=== PATIENT | male | born 1955 | race African-American/Black ===

== ENCOUNTER 2017-09-04 20:23 | Inpatient (IN) | payer MEDICAID ==
[~2017-09-04] VITALS: Ht 177.8 cm; Wt 133.9 kg
[2017-09-04 23:13] LABS: CALCIUM 8.7 mg/dL (8.5-10.1); CARBON DIOXIDE 27.9 mmol/L (21-32); CHLORIDE SERUM 100 mmol/L (98-107); CREATININE SERUM 1.1 mg/dL (0.7-1.3); GFR1 > 60 mL/min; GLUCOSE SERUM 95 mg/dL (74-106); POTASSIUM SERUM 3.8 mmol/L (3.5-5.1); SODIUM SERUM 139 mmol/L (136-145)
[2017-09-04 23:14] LABS: BASOPHIL % 0.2 % (0-2); PLATELET COUNT 340 x10^3mcL (130-400)
[2017-09-04 23:15] LABS: RED CELL DISTRIBUTION WIDTH 15.2 % (11.5-14.5)
[2017-09-04 23:17] LABS: ALBUMIN 3.6 g/dL (3.4-5.0); ALKALINE PHOSPHATASE 90 U/L (46-116); ALT/SGPT 29 U/L (16-63); AST/SGOT 20 U/L (15-37); BILIRUBIN TOTAL 0.5 mg/dL (0.20-1.00); LIPASE 83 IU/L (73-393); TOTAL PROTEIN, SERUM 8.5 g/dL (6.4-8.2)
[2017-09-05 01:00] LABS: MAGNESIUM 2.1 mg/dL (1.8-2.4); PHOSPHOROUS 3.1 mg/dL (2.5-4.9)
[2017-09-05 01:02] LABS: CHOLESTEROL/HDL RATIO 5.4
[2017-09-05 01:07] LABS: T3 TOTAL 1.33 ng/mL
[2017-09-05 01:19] LABS: FREE T4 1.11 ng/dL (0.76-1.46); FREE THYROXINE INDEX 3.1 ug/dL (1.4-4.5); T4(THYROXINE) 8.8 ug/dL (4.7-13.3)
[2017-09-05 02:19] VITALS: BP 187/117
[2017-09-05 03:49] LABS: microscopic required? YES; urine erythrocyte NEGATIVE (NEGATIVE)
[2017-09-05 04:03] LABS: AMPHETAMINE QUAL UR NONE DETECTED (NEG <=1000)
[2017-09-05 05:19] VITALS: BP 146/82
[2017-09-05 06:31] LABS: CALCIUM 8.7 mg/dL (8.5-10.1); CARBON DIOXIDE 26.5 mmol/L (21-32); CHLORIDE SERUM 103 mmol/L (98-107); CREATININE SERUM 0.9 mg/dL (0.7-1.3); GFR1 > 60 mL/min; GLUCOSE SERUM 90 mg/dL (74-106); POTASSIUM SERUM 3.8 mmol/L (3.5-5.1); SODIUM SERUM 139 mmol/L (136-145)
[2017-09-05 06:39] LABS: BASOPHIL % 0.6 % (0-2); PLATELET COUNT 314 x10^3mcL (130-400)
[2017-09-05 06:56] LABS: RED CELL DISTRIBUTION WIDTH 15.3 % (11.5-14.5)
[2017-09-05 09:23] VITALS: BP 164/106
[2017-09-05 10:49] VITALS: BP 127/60
[2017-09-05 16:15] VITALS: BP 133/77
[2017-09-05 22:05] VITALS: BP 181/111
[2017-09-06] VITALS (7 sets, daily range): BP systolic 134–188; BP diastolic 85–128
[2017-09-06 07:10] LABS: BASOPHIL % 0.4 % (0-2); PLATELET COUNT 342 x10^3mcL (130-400)
[2017-09-06 07:11] LABS: RED CELL DISTRIBUTION WIDTH 15.1 % (11.5-14.5)
[2017-09-06 07:28] LABS: CALCIUM 9.1 mg/dL (8.5-10.1); CHLORIDE SERUM 100 mmol/L (98-107); CREATININE SERUM 1.1 mg/dL (0.7-1.3); GFR1 > 60 mL/min; GLUCOSE SERUM 92 mg/dL (74-106); POTASSIUM SERUM 3.4 mmol/L (3.5-5.1); SODIUM SERUM 138 mmol/L (136-145)
[2017-09-06] MEDS ORDERED: BENAZEPRIL HYDR20 M1 PO (13:57)
[2017-09-06] MEDS ORDERED: CLONIDINE HCL0.1 MG PO (13:58)
[2017-09-07] VITALS (7 sets, daily range): BP systolic 114–174; BP diastolic 75–118
[2017-09-07 07:10] LABS: BASOPHIL % 0.2 % (0-2); PLATELET COUNT 338 x10^3mcL (130-400)
[2017-09-07 07:22] LABS: RED CELL DISTRIBUTION WIDTH 15.7 % (11.5-14.5)
[2017-09-07 07:32] LABS: CALCIUM 8.9 mg/dL (8.5-10.1); CREATININE SERUM 1.3 mg/dL (0.7-1.3); MAGNESIUM 2.1 mg/dL (1.8-2.4); PHOSPHOROUS 3.4 mg/dL (2.5-4.9); POTASSIUM SERUM 3.7 mmol/L (3.5-5.1)
[2017-09-08] VITALS (7 sets, daily range): BP systolic 113–146; BP diastolic 76–101; Ht 177.8 cm; Wt 133.9 kg
[2017-09-08 06:57] LABS: BASOPHIL % 0.3 % (0-2); PLATELET COUNT 328 x10^3mcL (130-400)
[2017-09-08 07:02] LABS: CALCIUM 9.5 mg/dL (8.5-10.1); CARBON DIOXIDE 24.7 mmol/L (21-32); CREATININE SERUM 1.6 mg/dL (0.7-1.3); MAGNESIUM 2.3 mg/dL (1.8-2.4); PHOSPHOROUS 4.1 mg/dL (2.5-4.9)
[2017-09-08 07:06] LABS: RED CELL DISTRIBUTION WIDTH 14.9 % (11.5-14.5)
[2017-09-09 05:38] VITALS: BP 137/87
[2017-09-09 07:01] LABS: PLATELET COUNT 329 x10^3mcL (130-400)
[2017-09-09 07:07] LABS: BASOPHIL % 0 % (0-2); RED CELL DISTRIBUTION WIDTH 15.4 % (11.5-14.5)
[2017-09-09 07:12] LABS: CALCIUM 8.9 mg/dL (8.5-10.1); CARBON DIOXIDE 25.2 mmol/L (21-32); CREATININE SERUM 1.6 mg/dL (0.7-1.3); MAGNESIUM 2.1 mg/dL (1.8-2.4); PHOSPHOROUS 3.1 mg/dL (2.5-4.9); POTASSIUM SERUM 4.6 mmol/L (3.5-5.1)
[2017-09-09 09:24] VITALS: BP 153/86
[2017-09-09 17:26] LABS: BASOPHIL % 0.4 % (0-2); PLATELET COUNT 294 x10^3mcL (130-400); RED CELL DISTRIBUTION WIDTH 15.6 % (11.5-14.5)
[2017-09-09] MEDS ORDERED: FLA500 PO (18:34)
[2017-09-09] MEDS ORDERED: TOP50 PO (18:36)
[2017-09-09] MEDS ORDERED: LOT20 PO (18:37)
[2017-09-09] MEDS ORDERED: LIPI10 PO (18:37)
[2017-09-09] MEDS ORDERED: HYD25 PO (18:38)
[2017-09-09 18:39] VITALS: BP 153/86
[2017-09-09] MEDS ORDERED: LAC PO (18:40)
[2017-09-09] MEDS ORDERED: LEVAQUIN750 MG PO (18:40)
[2017-09-09 18:55] LABS: CALCIUM 8.6 mg/dL (8.5-10.1); CARBON DIOXIDE 26.6 mmol/L (21-32); CREATININE SERUM 1.4 mg/dL (0.7-1.3); POTASSIUM SERUM 3.9 mmol/L (3.5-5.1)
[2017-09-09 21:43] VITALS: BP 122/79
[2017-09-10 05:45] VITALS: BP 153/94
[2017-09-10] MEDS ORDERED: APAP/HYDROCODON1 T13 PO (09:50)
[2017-09-10 09:52] VITALS: BP 138/88
[2017-09-10 11:17] VITALS: BP 138/88
== END 2017-09-10 12:50 | disposition home or self-care (01) | DRG 227 ==
LOC: ED 20:23 → DU 09-05 00:12 → MU 09-08 11:01
PROVIDERS: Emergency Medicine; Family Medicine; Surgery
PROC: 0WUF0JZ Supplement Abdominal Wall with Synthetic Substitute, Open Approach (ICD-10-PCS; principal; 2017-09-08 12:00)
DX: K43.6 Other and unspecified ventral hernia with obstruction, without gangrene (principal); N17.0 Acute kidney failure with tubular necrosis; Z68.41 Body mass index [BMI] 40.0-44.9, adult; K57.32 Diverticulitis of large intestine without perforation or abscess without bleeding; E66.01 Morbid (severe) obesity due to excess calories; Z53.29 Procedure and treatment not carried out because of patient's decision for other reasons; E87.6 Hypokalemia; N39.0 Urinary tract infection, site not specified; N20.0 Calculus of kidney; I10 Essential (primary) hypertension; E78.5 Hyperlipidemia, unspecified; D64.9 Anemia, unspecified; Z56.0 Unemployment, unspecified
CPT/HCPCS: 83880; 84439; 90658; 94150; C1781; J0330; J0360; J0690; J1170; J1580; J1644; J1956; J2175; J2250; J2270; J2405; J2704; J2710; J3010; J3490; J7030; J7120; Q0092